=== PATIENT | male | born 1985 | race Caucasian/White ===

== ENCOUNTER 2025-02-14 23:00 | Emergency (ER) | payer BC ==
[~2025-02-14] VITALS: Ht 182.8 cm; Wt 113.4 kg
[2025-02-14] MEDS ORDERED: Ondansetron Hydrochloride 4 MG/2 ML VIAL IM ONE (23:05)
[2025-02-14] MEDS ORDERED: Midazolam Hydrochloride 5 MG/ML VIAL NAS PRN (23:05)
[2025-02-14] MEDS ORDERED: SODIUM CHLORIDE 0.9% 1,000 ML IV ONE (23:25)
[2025-02-14 23:27] LABS: BASO # 0.1 10*3/uL (0.0-0.1); BASO % 0.5 % (0.0-1.0); EOS # 0.2 10*3/uL (0.0-0.4); HEMATOCRIT 40.8 % (42.0-52.0); MEAN CELL VOLUME 84.5 fl (80.0-94.0); MEAN CORPUSCULAR HGB 27.1 pg (27.0-31.0); MEAN CORPUSCULAR HGB CONC 32.1 g/dl (33.0-37.0); MEAN PLATELET VOLUME 9.2 fl (9.6-12.3); MONO # 1.4 10*3/uL (0.1-1.0); MONO % 8.3 % (3.0-9.0); NEUT # 12.2 10*3/uL (2.3-7.9); NEUT % 74.6 % (47.0-73.0); PLATELET COUNT AUTOMATED 331 10*3/uL (130-400); RED BLOOD COUNT 4.83 10*6/uL (4.50-5.90); RED CELL DISTRI WIDTH 15.1 % (0-14.5); WHITE BLOOD COUNT 16.4 10*3/uL (4.8-10.8)
[2025-02-14 23:37] LABS: ACT PARTIAL THROMBO TIME 22.1 SECONDS (20.0-32.1)
[2025-02-15 00:18] LABS: ALKALINE PHOSPHATASE 114 U/L (46-116); BUN 16 mg/dl (9-23); CHLORIDE 104 mmol/L (98-107); CPK 153 U/L (34-171); POTASSIUM 3.7 mmol/L (3.4-5.1); SGPT/ALT 25 U/L (5-49); TOTAL PROTEIN 6.9 gm/dL (6.0-8.0)
[2025-02-15 00:25] LABS: ETHYL ALCOHOL < 3.0 mg/dl (<3)
[2025-02-15 00:37] LABS: BILIRUBIN Negative (Negative); BLOOD Negative (Negative); CLARITY Clear (Clear); COLOR Yellow (Yellow); GLUCOSE Negative (Negative); KETONE Negative (Negative); LEUKO ESTERASE Negative (Negative); NITRITE Negative (Negative); SPECIFIC GRAVITY 1.015 (1.001-1.030); UROBILINOGEN 0.2 E.U./dl (0.0-1.0)
[2025-02-15 00:43] LABS: EPITHELIAL CELLS 0-2; WBC 0-2 wbc/hpf (0-5)
[2025-02-15 00:44] LABS: URINE AMPHETAMINES Negative (1000ng/ml); URINE BARBITURATES Negative (200ng/ml); URINE BENZODIAZEPINES Negative (200ng/ml); URINE CANNABINOIDS (THC) Positive (50ng/ml); URINE COCAINE Negative (300ng/ml); URINE METHADONE Negative (300ng/ml); URINE OPIATES Negative (300ng/ml); URINE PHENCYCLIDINE Negative (25ng/ml)
== END 2025-02-15 06:31 | disposition home or self-care (01) ==
LOC: ED 23:00 → EDBD 23:22 → ED 23:22
PROVIDERS: Internal Medicine
DX: R41.82 Altered mental status, unspecified (principal); T40.725A Adverse effect of synthetic cannabinoids, initial encounter; R11.0 Nausea; Y92.89 Other specified places as the place of occurrence of the external cause